=== PATIENT | female | born 1965 | race Caucasian/White ===

== ENCOUNTER → 2016-12-04 | Outpatient (CLI) | payer OTHER | LOC: FIMAGING 08:00 | DX: Z12.31 Encounter for screening mammogram for malignant neoplasm of breast (principal) | CPT/HCPCS: G0202 ==

== ENCOUNTER 2017-04-30 11:57 | Emergency (ER) | payer OTHER ==
[2017-04-30 12:15] VITALS: BP 149/94; PULSE 76; RESP 16; TEMP 98.6; O2SAT 96
--- NOTE | 2017-04-30 12:35 | EDPHY ---
H & P Time Seen by Provider: 04/30/17 12:10 HPI/ROS: This patient was doing yoga in her home and did notice a heating vent that had a sharp metal edge she bumped against with her foot on doing the yoga maneuvers in sustained a laceration to the dorsum of her left foot shortly prior to arrival with mild pain, moderate bleeding that was controlled with direct pressure. She denies any other injuries. She notes no exacerbating factors. She brought herself in by private vehicle for further evaluation. ROS: Neuro: No numbness or tingling Musculoskeletal: No underlying bony pain or difficulty walking 5 point ROS is otherwise negative. Smoking Status: Never smoked Physical Exam: Physical Exam Vital signs are normal. General: No acute distress HEENT: Atraumatic. Eyes: Pupils equal and react to light. Extraocular motions are intact. Lungs: No respiratory distress. Cardiac: Brisk capillary refill is intact throughout. Pulses are 2+ and symmetric in the affected extremity. Skin: No rash or pallor. 3.5 cm full-thickness laceration of the dorsum of the left foot without bleed. This extends into a superficial abrasion in the proximal portion that is another 2 cm in length. There are no foreign bodies on direct examination of the laceration. No deeper structures are injured. Neuro: Alert and oriented x3 with no sensorimotor deficits in the affected extremity. Constitutional: Initial Vital Signs Temperature (C) 37 C 04/30/17 12:12 Heart Rate 76 04/30/17 12:12 Respiratory Rate 16 04/30/17 12:12 Blood Pressure 149/94 H 04/30/17 12:12 O2 Sat (%) 96 04/30/17 12:12 O2 Delivery Mode Room Air Allergies/Adverse Reactions: nortriptyline [Nortriptyline] Allergy (Verified 04/30/17 12:15) venlafaxine HCl [From Effexor] Allergy (Verified 04/30/17 12:15) Home Medications: Medication Instructions Recorded QUETIAPINE FUMARATE [SEROQUEL] 07/11/12 Levothyroxine [Synthroid 75 mcg 01/03/16 (*)] Enalapril Maleate 04/30/17 GABAPENTIN 04/30/17 MDM/Departure - MDM Procedures: The wound is 3.5 cm described physical exam. The wound was copiously irrigated with saline. The wound was explored for foreign bodies and none were found. The wound was prepped and draped in the normal sterile fashion. The wound was anesthetized using a 50 50 mix of 1% plain lidocaine and 0.5% Marcaine, 27 gauge needle-3 mL with good effect. The edges were reapproximated using 16 running sutures with 5 0 Ethilon with good hemostasis and cosmesis. The patient tolerated the procedure well. There were no complications. Dressing is placed in a counseled regarding wound care. - Depart Disposition: Home, Routine, Self-Care Clinical Impression: Foot laceration Qualifiers: Encounter type: initial encounter Laterality: left Qualified Code(s): S91.312A - Laceration without foreign body, left foot, initial encounter Condition: Good Instructions: Care For Your Stitches (ED) Additional Instructions: Diagnosis: Foot laceration Plan: Keep the foot wound clean and dry for the 1st couple days then clean daily with warm soapy water Tylenol or ibuprofen for pain if needed Return for suture removal in 10-12 days Return sooner for redness, discharge or other concerns for infection. Referrals: Nat Lam MD [Primary Care Provider] - As per Instructions
== END 2017-04-30 12:48 | disposition home or self-care (01) ==
LOC: CED 11:57
PROC: 0HQNXZZ Repair Left Foot Skin, External Approach (ICD-10-PCS; principal; 2017-04-30)
DX: S91.312A Laceration without foreign body, left foot, initial encounter (principal); W26.8XXA Contact with other sharp object(s), not elsewhere classified, initial encounter

== ENCOUNTER 2017-07-08 19:41 | Emergency (ER) | payer OTHER ==
[2017-07-08 19:56] VITALS: RESP 16; TEMP 98.6
--- NOTE | 2017-07-08 20:30 | EDPHY ---
H & P Time Seen by Provider: 07/08/17 19:47 HPI/ROS: CHIEF COMPLAINT: pain to the right great toe HISTORY OF PRESENT ILLNESS: 51-year-old female without prior gout. Albeit, she is on a high-protein diet for approximately 2 months for weight loss, still on Atkins phase I, 18 g of carbohydrate daily. P progressive pain without known injury to the right great toe Q achiness, now getting worse R no radiation, remains confined to the right great toe S [id number] now with moderate plus as it is also uncomfortable. She did however sleep last night if she position is soft right without pressure on the foot T progressive over the last few days, starting 4 days ago however notably worse today When talking about pain relief, she states she would like to avoid narcotics out of general purposes and was thrilled to know that it was not necessary Sports: Did recently start up her walking as part of bear weight loss program. She also gets the gym and does biking REVIEW OF SYSTEMS: Constitutional - no fevers or chills Musculoskeletal - see above Integument - no rashes or wounds Neurological - no numbness, tingling, or paresthesias. Smoking Status: Never smoked Physical Exam: General Appearance: Alert, no distress. Afebrile. Extremities: There is some soft tissue swelling present over the right metatarsophalangeal joint with faint sense of warmth associated with this as well as a faint sense of erythema. No skin breakdown, no lymphangitis. Neurological: NV intact. Skin: Skin is intact. Warm and dry, no rashes. no lymphangitis. There are no puncture wounds or abrasions or other injuries present on the sole of the foot or in the web space Constitutional: Initial Vital Signs Temperature (C) 37 C 07/08/17 19:53 Heart Rate 91 07/08/17 19:53 Respiratory Rate 16 07/08/17 19:53 Blood Pressure 141/105 H 07/08/17 19:53 O2 Sat (%) 97 07/08/17 19:53 O2 Delivery Mode Room Air Allergies/Adverse Reactions: nortriptyline [Nortriptyline] Allergy (Verified 04/30/17 12:15) venlafaxine HCl [From Effexor] Allergy (Verified 04/30/17 12:15) Home Medications: Medication Instructions Recorded QUETIAPINE FUMARATE [SEROQUEL] 07/11/12 Levothyroxine [Synthroid 75 mcg 01/03/16 (*)] Enalapril Maleate 04/30/17 GABAPENTIN 04/30/17 Indomethacin [Indocin 25 mg (*)] 50 mg PO TID #30 cap 07/08/17 Medical Decision Making ED Course/Re-evaluation: On clinical exam there is little to suggest any form of cellulitis and a things pointing toward count. Unfortunately, I fear that her high protein intake might well contributing to things. I have explained to her that a uric acid even for normal would not rule that out. However as the uric acid is sent to the main hospital, she will be going home and calling us for results later this evening. In the interim will be checking her renal function. Given a starting dose of Indocin here in the ER. We talked to the GI renal side effects. We also discussed other possibilities such as colchicine therapy. She was not inclined to take the latter. Ultimately the laboratory studies returned as follows: Normal electrolytes Normal renal function Uric acid normal at 5.5 Differential Diagnosis: The differential diagnosis includes but is not limited to: Fracture, Sprain, Strain, Dislocation, cellulitis, gout - Data Points Laboratory Results: Laboratory Results 07/08/17 20:37 07/08/17 20:37 Sodium 139 mEq/L mEq/L (134-144) Potassium 4.2 mEq/L mEq/L (3.5-5.2) Chloride 102 mEq/L mEq/L (97-110) Carbon Dioxide 24 mEq/l mEq/l (22-31) Anion Gap 13 mEq/L mEq/L (8-16) BUN 17 mg/dL mg/dL (7-23) Creatinine 0.8 mg/dL mg/dL (0.6-1.0) Estimated GFR > 60 Glucose 84 mg/dL mg/dL (70-100) Uric Acid 5.5 mg/dL mg/dL (2.5-6.8) Calcium 9.3 mg/dL mg/dL (8.5-10.4) Medications Given: Discontinued Medications Indomethacin (Indocin) 50 mg PO EDNOW ONE Stop: 07/08/17 20:33 Last Admin: 07/08/17 20:43 Dose: 50 mg Departure - Departure Disposition: Home, Routine, Self-Care Clinical Impression: Gout attack Qualifiers: Gout site: toe Gout etiology: unspecified cause Laterality: right Qualified Code(s): M10.9 - Gout, unspecified Condition: Good Instructions: Low Purine Diet (ED), Gout (ED) Additional Instructions: Please call in 2 hours for the uric acid results or in the morning. I have including instructions on a low purine diet as appearance are linked with gout. Unfortunately, this does suggest limiting protein intake, for example-to 3-4 oz per serving. Remember, the blood level of uric acid may be normal, and still be related to the diet that your on. Making a tent over her feet with cushions underneath the blankets may help sleep at night. Take the Indocin for 5 days. With food. Referrals: Nat Lam MD [Primary Care Provider] - As per Instructions Prescriptions: Indomethacin [Indocin 25 mg (*)] 50 mg PO TID #30 cap
[2017-07-08] MEDS ORDERED: INDOMETHACIN 25 MG CAP PO ONE (20:32)
[2017-07-08 20:56] VITALS: BP 128/95; PULSE 87; O2SAT 95
[2017-07-08 20:58] LABS: ANION GAP 13 mEq/L (8-16); CALCIUM 9.3 mg/dL (8.5-10.4); CARBON DIOXIDE 24 mEq/l (22-31); CHLORIDE 102 mEq/L (97-110); CREATININE 0.8 mg/dL (0.6-1.0); GLOMERULAR FILTRATION RATE > 60; GLUCOSE 84 mg/dL (70-100); POTASSIUM 4.2 mEq/L (3.5-5.2); SODIUM 139 mEq/L (134-144); URIC ACID 5.5 mg/dL (2.5-6.8)
== END 2017-07-08 20:50 | disposition home or self-care (01) ==
LOC: CED 19:41
DX: M10.9 Gout, unspecified (principal)
CPT/HCPCS: 80048-PO; 84550-PO

== ENCOUNTER 2017-08-30 16:04 | Emergency (ER) | payer OTHER ==
[2017-08-30 16:19] VITALS: TEMP 97.7
[2017-08-30] MEDS ORDERED: NS 1,000 ML IV ONE (19:26)
--- NOTE | 2017-08-30 19:26 | EDPHY ---
H & P Stated Complaint: Chronic neuropathy,worse since Thurs w/pain from pelvic area to both feet HPI/ROS: HPI CHIEF COMPLAINT: Back pain HISTORY OF PRESENT ILLNESS: This patient is a 52-year-old female she has significant past medical history for chronic back pain. She has previously had a cervical fusion and has chronic low back pain for which she gets injections intermittently for typically steroid injections that gives her relief. She states she has a chronic back pain worse over the past few months in her lumbar region. She gets sharp stabbing pain that radiates down both of her posterior gluteus and then across the anterior part of her legs down into her feet. She denies any leg weakness. Denies saddle anesthesia. She denies bowel or bladder continence or fever. She does report last week she felt the movie theater backwards landing on her butt and since then she has had worsening pain. It is worse in the morning. She describes it as electrical shock going down both of her legs starting in her gluteus bilaterally and radiating down the front of her legs to her feet. Again no signs of acute cauda equina syndrome no saddle anesthesia or leg weakness. No fever. She is unsure if she injured her back further. Past Medical History: Chronic back pain, chronic neck pain Past Surgical History: Cervical fusion x2 Social History: Denies daily use of drugs alcohol tobacco products Family History: Noncontributory ROS REVIEW OF SYSTEMS: A comprehensive 10 point review of systems is otherwise negative aside from elements mentioned in the history of present illness. Exam Constitutional triage nursing summary reviewed, vital signs reviewed, awake/ alert. Eyes normal conjunctivae and sclera, EOMI, PERRLA. HENT normal inspection, atraumatic, moist mucus membranes, no epistaxis, neck supple/ no meningismus, no raccoon eyes. Respiratory clear to auscultation bilaterally, normal breath sounds, no respiratory distress, no wheezing. Cardiovascular rate normal, regular rhythm, no murmur, no edema, distal pulses normal. Gastrointestinal soft, non-tender, no rebound, no guarding, normal bowel sounds, no distension, no pulsatile mass. Genitourinary no CVA tenderness. Musculoskeletal no midline vertebral tenderness, full range of motion, no calf swelling, no tenderness of extremities, no meningismus, good pulses, neurovascularly intact. Skin pink, warm, & dry, no rash, skin atraumatic. Neurologic awake, alert and oriented x 3, AAOx3, moves all 4 extremities equally, motor intact, sensory intact, CN II-XII intact, normal cerebellar, normal vision, normal speech. Psychiatric normal mood/affect. Heme/Lymph/Immune no lymphadenopathy. Differential Diagnosis: Includes but is not limited to in a particular order disc disease, annular tear, nerve root compression, sciatica, compression fracture, no signs of acute cauda equina syndrome. Medical Decision Making: Plan for this patient IV pain control, IV fluids, basic blood work, MRI lumbar spine and re-evaluate. Re-evaluation: MRI of lumbar spine reviewed. Shows multilevel degenerative disc disease in annular tear. No new acute traumatic injury. Please see full dictation report [id number]: I did re-evaluate this patient this time she is feeling much better. She would like to go home. She was able to ambulate. She has no signs of acute cauda equina. Blood work, urinalysis, MRI was reviewed. I did print her MRI report for her given her. I do recommend she follows up with primary care doctor undergoes physical therapy. I have provided a prescription for anti-inflammatories and Dukedom however she has declined the Dukedom prescription. Source: Patient - Personal History LMP (Females 10-55): Post Menopausal Current Tetanus Diphtheria and Acellular Pertussis (TDAP): Yes Tetanus Vaccine Date: 2016 - Medical/Surgical History Hx Asthma: No Hx Chronic Respiratory Disease: No Hx Diabetes: No Hx Cardiac Disease: No Hx Renal Disease: No Hx Cirrhosis: No Hx Alcoholism: No Hx HIV/AIDS: No Hx Splenectomy or Spleen Trauma: No Other PMH: hypothyroid, depression, PTSD, cervical fusion with numbness to right leg. neuropathies in both feet. - Social History Smoking Status: Never smoked Constitutional: Initial Vital Signs Temperature (C) 36.5 C 08/30/17 16:10 Heart Rate 79 08/30/17 16:10 Respiratory Rate 16 08/30/17 16:10 Blood Pressure 134/103 H 08/30/17 16:10 O2 Sat (%) 100 08/30/17 16:10 O2 Delivery Mode Nasal Cannula O2 (L/minute) 2 Allergies/Adverse Reactions: nortriptyline [Nortriptyline] Allergy (Verified 08/30/17 16:11) venlafaxine HCl [From Effexor] Allergy (Verified 08/30/17 16:11) Home Medications: Medication Instructions Recorded QUETIAPINE FUMARATE [SEROQUEL] 07/11/12 Levothyroxine [Synthroid 75 mcg 01/03/16 (*)] Enalapril Maleate 04/30/17 Gabapentin [Gralise] 1 each PO 08/30/17 Hydrocodone/APAP 5/325 [Dukedom 1 - 2 tab PO Q4H PRN #10 tab 08/30/17 5/325] Ibuprofen [Motrin (*)] 800 mg PO Q6-8PRN #10 tab 08/30/17 Medical Decision Making - Diagnostics Imaging Results: Imaging Impressions Lumbar Spine MRI 08/30/17 20:10 Impression: Multilevel degenerative change some of which have improved since 2011. Please see specifics above. Results were communicated to John Pal MD, at 08/30/2017 21:42 - Data Points Laboratory Results: Laboratory Results 08/30/17 19:45 08/30/17 19:45 08/30/17 08/30/17 08/30/17 19:45 19:45 19:45 WBC 6.96 10^3/uL 10^3/uL (3.80-9.50) RBC 4.60 10^6/uL 10^6/uL (4.18-5.33) Hgb 13.9 g/dL g/dL (12.6-16.3) Hct 41.2 % % (38.0-47.0) MCV 89.6 fL fL (81.5-99.8) MCH 30.2 pg pg (27.9-34.1) MCHC 33.7 g/dL g/dL (32.4-36.7) RDW 13.5 % % (11.5-15.2) Plt Count 167 10^3/uL 10^3/uL (150-400) MPV 12.0 fL H fL (8.7-11.7) Neut % (Auto) 57.1 % % (39.3-74.2) Lymph % (Auto) 33.9 % % (15.0-45.0) [place] % (Auto) 7.2 % % (4.5-13.0) Eos % (Auto) 1.3 % % (0.6-7.6) Baso % (Auto) 0.4 % % (0.3-1.7) Nucleat RBC Rel Count 0.0 % % (0.0-0.2) Absolute Neuts (auto) 3.97 10^3/uL 10^3/uL (1.70-6.50) Absolute Lymphs (auto) 2.36 10^3/uL 10^3/uL (1.00-3.00) Absolute Monos (auto) 0.50 10^3/uL 10^3/uL (0.30-0.80) Absolute Eos (auto) 0.09 10^3/uL 10^3/uL (0.03-0.40) Absolute Basos (auto) 0.03 10^3/uL 10^3/uL (0.02-0.10) Absolute Nucleated RBC 0.00 10^3/uL 10^3/uL (0-0.01) Immature Gran % 0.1 % % (0.0-1.1) Immature Gran # 0.01 10^3/uL 10^3/uL (0.00-0.10) Sodium 141 mEq/L mEq/L (134-144) Potassium 3.8 mEq/L mEq/L (3.5-5.2) Chloride 102 mEq/L mEq/L (97-110) Carbon Dioxide 24 mEq/l mEq/l (22-31) Anion Gap 15 mEq/L mEq/L (8-16) BUN 14 mg/dL mg/dL (7-23) Creatinine 0.7 mg/dL mg/dL (0.6-1.0) Estimated GFR > 60 Glucose 95 mg/dL mg/dL (70-100) Calcium 9.7 mg/dL mg/dL (8.5-10.4) Magnesium 1.8 mg/dL mg/dL (1.6-2.3) Total Bilirubin 0.4 mg/dL mg/dL (0.1-1.4) Conjugated Bilirubin 0.2 mg/dL mg/dL (0.0-0.5) Unconjugated Bilirubin 0.2 mg/dL mg/dL (0.0-1.1) AST 25 IU/L IU/L (14-46) ALT 30 IU/L IU/L (9-52) Alkaline Phosphatase 40 IU/L IU/L (38-126) Total Protein 7.4 g/dL g/dL (6.3-8.2) Albumin 4.5 g/dL g/dL (3.5-5.0) Urine Color PALE YELLOW Urine Appearance CLEAR Urine pH 6.0 (5.0-7.5) Ur Specific [place]ora 1.005 (1.002-1.030) Urine Protein NEGATIVE (NEGATIVE) Urine Ketones TRACE H (NEGATIVE) Urine Blood NEGATIVE (NEGATIVE) Urine Nitrate NEGATIVE (NEGATIVE) Urine Bilirubin NEGATIVE (NEGATIVE) Urine Urobilinogen NEGATIVE EU EU (0.2-1.0) Ur Leukocyte Esterase NEGATIVE (NEGATIVE) Urine Glucose NEGATIVE (NEGATIVE) Medications Given: Discontinued Medications Hydromorphone HCl (Dilaudid) 1 mg IVP EDNOW ONE Stop: 08/30/17 20:12 Last Admin: 08/30/17 20:29 Dose: 1 mg Sodium Chloride (Ns) 1,000 mls @ 0 mls/hr IV EDNOW ONE; Wide Open PRN Reason: Protocol Stop: 08/30/17 19:27 Last Admin: 08/30/17 19:46 Dose: 1,000 mls Ondansetron HCl (Zofran) 4 mg IVP EDNOW ONE Stop: 08/30/17 20:13 Last Admin: 08/30/17 20:28 Dose: 4 mg Departure - Departure Disposition: Home, Routine, Self-Care Clinical Impression: Back pain Qualifiers: Back pain location: low back pain Chronicity: acute Back pain laterality: unspecified Sciatica presence: with sciatica Sciatica laterality: bilateral sciatica Qualified Code(s): M54.42 - Lumbago with sciatica, left side Condition: Good Instructions: Sciatica (ED), Acute Low Back Pain (ED), Lumbar Radiculopathy (ED ) Additional Instructions: 1. I recommend he follow up with her primary care doctor. 2. Return emergency room if you have worsening symptoms questions or concerns. 3. Ibuprofen for mild pain 4. Dukedom for severe pain Referrals: Nat Lam MD [Primary Care Provider] - As per Instructions Prescriptions: Hydrocodone/APAP 5/325 [Dukedom 5/325] 1 - 2 tab PO Q4H PRN #10 tab PRN Reason: Pain, Moderate Ibuprofen [Motrin (*)] 800 mg PO Q6-8PRN #10 tab
[2017-08-30 19:54] LABS: % IMMATURE GRANULYOCYTES 0.1 % (0.0-1.1); ABSOLUTE IMMATURE GRANULOCYTES 0.01 10^3/uL (0.00-0.10); ADD DIFF? NO; ADD MORPH? NO; ADD SCAN? NO; ATYPICAL LYMPHOCYTE FLAG 0 (0-99); FRAGMENT RBC FLAG 0 (0-99); HEMATOCRIT 41.2 % (38.0-47.0); HEMOGLOBIN 13.9 g/dL (12.6-16.3); LEFT SHIFT FLG 0 (0-99); LIPEMIA HEMOLYSIS FLAG 80 (0-99); MEAN CELL HEMOGLOBIN 30.2 pg (27.9-34.1); MEAN CELL HEMOGLOBIN CONCENTR. 33.7 g/dL (32.4-36.7); MEAN CELL VOLUME 89.6 fL (81.5-99.8); PLATELET CLUMPS FLAG 10 (0-99); PLATELET COUNT 167 10^3/uL (150-400); RED CELL DISTRIBUTION WIDTH 13.5 % (11.5-15.2)
[2017-08-30 19:57] LABS: COLOR PALE YELLOW; LEUKOCYTE ESTERASE,URINE NEGATIVE (NEGATIVE); NITRITE,URINE NEGATIVE (NEGATIVE)
[2017-08-30 20:05] LABS: ALANINE AMINOTRANSFERASE 30 IU/L (9-52); ALBUMIN 4.5 g/dL (3.5-5.0); ALKALINE PHOSPHATASE 40 IU/L (38-126); ANION GAP 15 mEq/L (8-16); ASPARTATE AMINOTRANSFERASE 25 IU/L (14-46); BILIRUBIN,TOTAL 0.4 mg/dL (0.1-1.4); BILIRUBIN-CONJUGATED 0.2 mg/dL (0.0-0.5); BILIRUBIN-UNCONJUGATED 0.2 mg/dL (0.0-1.1); CALCIUM 9.7 mg/dL (8.5-10.4); CARBON DIOXIDE 24 mEq/l (22-31); CHLORIDE 102 mEq/L (97-110); CREATININE 0.7 mg/dL (0.6-1.0); GLOMERULAR FILTRATION RATE > 60; GLUCOSE 95 mg/dL (70-100); MAGNESIUM 1.8 mg/dL (1.6-2.3); POTASSIUM 3.8 mEq/L (3.5-5.2); SODIUM 141 mEq/L (134-144); TOTAL PROTEIN 7.4 g/dL (6.3-8.2)
[2017-08-30] MEDS ORDERED: HYDROmorphONE/DILAUDID 1 MG/ML INJ IVP ONE (20:11)
[2017-08-30] MEDS ORDERED: ONDANSETRON 4 MG/2 ML VIAL IVP ONE (20:12)
[2017-08-30 22:08] VITALS: PULSE 67
[2017-08-30 22:44] VITALS: BP 114/91; RESP 18; O2SAT 99
== END 2017-08-30 22:51 | disposition home or self-care (01) ==
DX: M54.42 Lumbago with sciatica, left side (principal); E86.9 Volume depletion, unspecified
CPT/HCPCS: 96374; J1170; J2405

== ENCOUNTER 2017-11-05 11:46 | Emergency (ER) | payer OTHER ==
--- NOTE | 2017-11-05 13:03 | EDPHY ---
H & P Stated Complaint: Spinal inj at pain center in [place];pain worse - Personal History LMP (Females 10-55): Post Menopausal Current Tetanus Diphtheria and Acellular Pertussis (TDAP): Yes Tetanus Vaccine Date: 2016 - Medical/Surgical History Hx Asthma: No Hx Chronic Respiratory Disease: No Hx Diabetes: No Hx Cardiac Disease: No Hx Renal Disease: No Hx Cirrhosis: No Hx Alcoholism: No Hx HIV/AIDS: No Hx Splenectomy or Spleen Trauma: No Other PMH: hypothyroid, depression, PTSD, cervical fusion with numbness to right leg. neuropathies in both feet. chronic pain. - Social History Smoking Status: Never smoked <Cal Nevarez - Last Filed: 11/05/17 15:49> <Rody Jimenes - Last Filed: 11/06/17 21:01> Time Seen by Provider: 11/05/17 13:03 Constitutional: Initial Vital Signs Temperature (C) 36.6 C 11/05/17 11:50 Heart Rate 84 11/05/17 11:50 Respiratory Rate 18 11/05/17 11:50 Blood Pressure 133/93 H 11/05/17 11:50 O2 Sat (%) 96 11/05/17 11:50 O2 Delivery Mode Room Air O2 (L/minute) 2 Allergies/Adverse Reactions: nortriptyline [Nortriptyline] Allergy (Verified 11/05/17 11:55) venlafaxine HCl [From Effexor] Allergy (Verified 11/05/17 11:55) Home Medications: Medication Instructions Recorded QUETIAPINE FUMARATE [SEROQUEL] 07/11/12 Levothyroxine [Synthroid 75 mcg 01/03/16 (*)] Enalapril Maleate 04/30/17 Gabapentin [Gralise] 1 each PO 08/30/17 Hydrocodone/APAP 5/325 [[place] 1 - 2 tab PO Q4H PRN #10 tab 08/30/17 5/325] Ibuprofen [Motrin (*)] 800 mg PO Q6-8PRN #10 tab 08/30/17 Hydrocodone/APAP 5/325 [[place] 1 tab PO Q6H PRN #20 tab 11/05/17 5/325 (*)] Meloxicam [Mobic 15 mg] 15 mg PO 11/05/17 Tapentadol HCl [Nucynta 50 MG (*)] 50 mg PO 11/05/17 methylPREDNISolone [Medrol Dose 4 mg PO DAILY #1 ea 11/05/17 Stevie] Medical Decision Making <Cal Nevarez - Last Filed: 11/05/17 15:49> - Diagnostics Imaging: Discussed imaging studies w/ architecture analyst Radiologist <Rody Jimenes - Last Filed: 11/06/17 21:01> ED Course/Re-evaluation: CHIEF COMPLAINT: Leg pain. HISTORY OF PRESENT ILLNESS: This patient is a 52 year old female s/p PRP injection 11/03/17 at L4-L5 presents with bilateral leg pain. Following the procedure, she felt as if she was going to faint or vomit from pain and her legs felt "wooden". That evening, she had severe burning and cramping pain in her legs, right greater than left, 8/10 in severity. This discomfort radiates all the way down her leg, involving all her toes other than the great toe. She called her provider's office and they recommended doubling her Neurontin dosage. She took 2400mg which did not relieve her pain much. Yesterday, she felt better and was able to walk around the house but continued to feel "electric jolts" in her legs. Last night, she felt her entire back was "burning hot" but did not note any external signs. Today, she woke and turned over in bed and had sudden severe pains throughout her body. She is now able to ambulate by shuffling, but continues to experience pain and cramping in both legs, left greater than right. No fever, vomiting, incontinence of bladder or bowels, or other associated symptoms. Additionally, the patient states she has had a complex workup at [facility] including t-spine MRI. REVIEW OF SYSTEMS: A 10 point review of systems was performed and is negative with the exception of the elements mentioned in the history of present illness. PHYSICAL EXAM: HR, BP, O2 Sat, RR. Temp noted General Appearance: Alert, well hydrated, appropriate, and non-toxic appearing. Head: Atraumatic without scalp tenderness or obvious injury Eyes: Pupils equal, round, reactive to light and accommodation, EOMI, no trauma , no injection. Ears: Clear bilaterally, no perforation, normal landmarks Nose: Atraumatic, no rhinorrhea, clear. Throat: There is no erythema or exudates, no lesions, normal tonsils, mucus membranes moist. Neck: Supple, 2+ carotid upstroke, nontender, no lymphadenopathy. Respiratory: No retractions, no distress, no wheezes, and no accessory muscle use. Lungs are clear to auscultation bilaterally. Cardiovascular: Regular rate and rhythm, no murmurs, rubs, or gallops. Bilateral carotid, radial, dorsalis pedis, and posterior tibial pulses intact. Good capillary refill all extremities. Gastrointestinal: Abdomen is soft, nontender, non-distended, no masses, no rebound, no guarding, no peritoneal signs. Musculoskeletal: Normal active ROM of all extremities, atraumatic. Neurological: Alert, appropriate, and interactive. The patient has normal DTRs and non-focal cranial nerves, motor, sensory, and cerebellar exam. Skin: No rashes, good turgor, no nodules on palpation. Past medical history: Hypothyroid, Depression, PTSD, Peripheral neuropathy, Chronic pain. Past surgical history: Two cervical fusions, most recently 10/[address] Richmond. Family history: Noncontributory. Social history: Friend at bedside. Lives in [place]. Works at [employer]. DIFFERENTIAL DIAGNOSIS: The differential diagnosis for the patient's back pain included but was not limited to musculoskeletal pain, epidural abscess, herniated disk, spinal fracture, and intra-abdominal causes including urinary system. MEDICAL DECISION MAKIN52 y/o female presents with bilateral lower extremity pain and weakness following PRP injection two days ago. Symptoms consistent with L5-S1 processes. Plan for pain management, MRI lumbar spine. Plan for labs including CBC, chemistries, Coag. Laboratory studies unremarkable. Plan to administer 0.5mg IV Dilaudid and 4mg IV Zofran for pain relief. 15:00 Care of this patinet signed out to Dr. Jimenes at shift change pending MRI report. (Cal Nevarez) Other Provider: 1500: I assumed care of this patient from Dr. Nevarez at shift change. 1640: Spoke with Dr. Ambrose, radiologist, regarding the patient's lumbar MRI. He reports there are several disc herniations (L3-4 and a central canal stenosis (L4-5).There is no epidural abscess or discitis. 1745: I assessed this patient and discussed the imaging findings. She and her are relieved that there is no evidence of an infectious process or acute surgical lesion. Her pain has returned and she received addtional IV Dilaudid. We discussed short course of narcotics. We discussed beginning a medrol dose pack; as she is s/p an interventional procedure, we will discuss the use of steroids with the provider at [facility]. She understands she should avoid nonsteroidals. She has a muscle relaxant at home that she will begin taking. She was discharge in improved condition and will contact [facility] as soon as possible. I placed a call to [facility]. The oncall physician did return my call after patient had been discharged. He was made aware of the evaluation and will discuss the use of the medrol dose pack with the patient in the morning. (Rody Jimenes) - Data Points Laboratory Results: Laboratory Results 11/05/17 13:30 11/05/17 13:30 Medications Given: Discontinued Medications Hydromorphone HCl (Dilaudid) 0.5 mg IVP EDNOW ONE Stop: 11/05/17 14:45 Last Admin: 11/05/17 14:54 Dose: 0.5 mg Hydromorphone HCl (Dilaudid) 1 mg IVP EDNOW ONE Stop: 11/05/17 18:00 Last Admin: 11/05/17 18:16 Dose: 1 mg Ondansetron HCl (Zofran) 4 mg IVP EDNOW ONE Stop: 11/05/17 14:56 Last Admin: 11/05/17 14:56 Dose: 4 mg Departure <Cal Nevarez - Last Filed: 11/05/17 15:49> <Rody Jimenes - Last Filed: 11/06/17 21:01> - Departure Disposition: Home, Routine, Self-Care Clinical Impression: Lumbar disc herniation, Central stenosis of spinal canal Instructions: Lumbar Disc Herniation (ED), Lumbar Spinal Stenosis (ED) Additional Instructions: Take Amrex, Nucynta, and Gabapentin as previously prescribed. Take [place] as prescribed for severe pain, primarily while sleeping. Take the Medrol dose pack as prescribed. You can start this tomorrow after speaking with [facility]. Follow up with your primary care provider in the next week. Return to the emergency department for severe pain, fever, numbness, difficulty walking, change in location or nature of pain or other concerns. Referrals: Nat Lam MD [Primary Care Provider] - As per Instructions Prescriptions: Hydrocodone/APAP 5/325 [[place] 5/325 (*)] 1 tab PO Q6H PRN #20 tab PRN Reason: Pain methylPREDNISolone [Medrol Dose Stevie] 4 mg PO DAILY #1 ea Report Scribed for: Cal Nevarez Report Scribed by: Shannon Gracia Date of Report: 11/05/17 Time of Report: 15:48 <Cal Nevarez - Last Filed: 11/05/17 15:49>
[2017-11-05 13:44] LABS: PLATELET COUNT 178 10^3/uL (150-400)
[2017-11-05 13:51] LABS: INR 0.96 (0.83-1.16)
[2017-11-05] MEDS ORDERED: HYDROmorphONE/DILAUDID 1 MG/ML INJ IVP ONE ×2 (14:44→17:59)
[2017-11-05] MEDS ORDERED: ONDANSETRON 4 MG/2 ML VIAL ONE (14:44)
[2017-11-05] MEDS ORDERED: HYDROmorphONE/DILAUDID 2 MG/ML INJ ONE ×2 (14:44→18:04)
[2017-11-05] MEDS ORDERED: ONDANSETRON 4 MG/2 ML VIAL IVP ONE (14:55)
[2017-11-05] MEDS ORDERED: GADOBUTROL 10 ML VIAL IVP ONE (14:58)
[2017-11-05 15:38] VITALS: RESP 16; O2SAT 99
[2017-11-05 18:54] VITALS: BP 118/74; PULSE 65; TEMP 97.3
== END 2017-11-05 19:10 | disposition home or self-care (01) ==
DX: M48.061 Spinal stenosis, lumbar region without neurogenic claudication (principal); M51.26 Other intervertebral disc displacement, lumbar region
CPT/HCPCS: 96374; A9585; J1170; J2405

== ENCOUNTER → 2017-12-05 | Outpatient (CLI) | payer OTHER | LOC: FIMAGING 08:59 | PROVIDERS: ATTEND Family Medicine | DX: Z12.31 Encounter for screening mammogram for malignant neoplasm of breast (principal) ==

== ENCOUNTER → 2018-11-27 | Outpatient (CLI) | payer OTHER | LOC: FIMAGING 14:07 | PROVIDERS: ATTEND Family Medicine | DX: Z12.31 Encounter for screening mammogram for malignant neoplasm of breast (principal) ==